=== PATIENT | female | born 1935 | race Caucasian/White ===

== ENCOUNTER 2016-05-13 08:42 | Inpatient (IN) | payer MEDICARE, MEDICAID ==
[~2016-05-13] VITALS: Ht 175.3 cm; Wt 78.9 kg
[2016-05-13] VITALS (8 sets, daily range): BP systolic 40–100; BP diastolic 29–44; PULSE 62–91; RESP 22–30; O2SAT 90–98
--- NOTE | 2016-05-13 08:37 | ED.REPORT ---
HPI-Cardiac Arrest Date of Service May 13, 2016 ED Provider: The patient is an 80 year old female with an unknown medical history who was brought to the emergency department by EMS after she was found down by family. The patient was found in bed, unresponsive and apneic. She was still warm with good skin color. Family started CPR and medics were called. Medics arrived about 10-15 minutes after CPR was started. When they arrived the patient was in asystole. They shocked her twice and administered 2 rounds of epinephrine and she went into a PEA rhythm. Another round was completed and she regained pulses with a pressure in the 80s systolic. They moved her into the rig and within about 1 minute she lost pulses again. CPR was started again, 1 round of epinephrine was administered, and she regained circulation. 2-3 minutes prior to arrival the patient lost pulses again, CPR was started, and she was given an additional dose of epinephrine (2.5 minutes prior to arrival). BSG taken by medics was 220. CPR was in progress for at least 55 minutes prior to arrival. The initial downtime is unknown. Nursing Notes Stated Complaint: CPR IN PROGRESS Nursing Notes Reviewed: Yes General Time Seen by Provider: 08:43 Chief Complaint Other (found down) Down Time Prior to EMS: Unknown (at least 15 minutes) Total Time Arrest to Arrival: Unknown (at least 55 minutes) Context: Resuscitation: Initial rhythm asystole, Defibrillation X 2, Epinephrine IV X 2 Hx Obtained From: EMS Unable to Obtain Hx: Patient condition Arrived By: Ambulance Onset Occurred: Onset unknown (at least 55 minutes) Symptom Duration: Since onset Past Medical History Unable to Obtain History Past medical history, Past surgical history, Family history, Smoking history, Social history, Occupation, Ambulatory status Review of Systems Unable to Obtain ROS Patient condition, Intubated Physical Exam Initial Vital Signs Vital Signs (First) Date Time Temp Pulse Resp B/P Pulse Ox O2 Delivery O2 Flow Rate FiO2 05/13/16 09:50 95 05/13/16 10:42 32.4 74 22 100/44 Mechanical Ventilator SEE PAPER CHART Initial VS: Reviewed Neck: Supple, Full range of motion Extremities: No swelling Skin: Warm Alertness: Positive: Unresponsive CPR in progress, intubated with shankar airway Respiratory / Chest: Breath sounds = bilat Good bilateral breath sounds CARDIAC: CPR in progress, well perfused Abdomen: Soft, No distention large intraabdominal mass palpated in the RUQ Head / Eyes: Normocephalic Pupils are 4 mm and minimally reactive Lower Extremity / Pelvis / MS: No deformity No calf swelling NEURO: After return of spontaneous circulation the patient is not breathing spontaneously. She is not responding to painful stimuli. No facial droop or lateralizing neurologic findings. Interpretation & Diagnostics Lab Results Interpretation Result Diagram: 05/13/16 0859 05/13/16 0859 Test 05/13/16 08:59 05/13/16 09:00 05/13/16 09:26 05/13/16 09:27 White Blood Count 11.6th/mm3 (3.8-10.1) Red Blood Count 3.98mil/mm3 (3.90-5.20) Hemoglobin 12.5g/dL (12.0-15.6) Hematocrit 41.7% (35.0-46.0) Mean Corpuscular Volume 104.8fL (81-100) Mean Corpuscular Hemoglobin 31.4pg (27.0-35.0) Mean Corpuscular Hemoglobin Concent 30.0% (32.0-37.0) Red Cell Distribution Width 12.6% (12.3-15.4) Platelet Count 123bil/L (150-400) Neutrophils (%) (Auto) 42.6% (40-74) Lymphocytes (%) (Auto) 44.6% (14-46) Monocytes (%) (Auto) 4.3% (4-12) Eosinophils (%) (Auto) 2.0% (0-5) Basophils (%) (Auto) 0.3% (0-3) Sodium Level 140mEq/L (134-144) Potassium Level 4.3mEq/L (3.5-5.2) Chloride Level 99mEq/L (97-108) Carbon Dioxide Level 7mmol/L (18-29) Blood Urea Nitrogen 25mg/dL (8-27) Creatinine 1.21mg/dL (0.57-1.00) Estimat Glomerular Filtration Rate 61mL/min (>59) Glucose Level 338mg/dL (60-99) Calcium Level 8.6mg/dL (8.5-10.1) Magnesium Level 3.1mg/dL (1.6-2.6) Total Bilirubin 0.3mg/dL (0.0-1.2) Aspartate Amino Transf (AST/SGOT) 156U/L (0-50) Alanine Aminotransferase (ALT/SGPT) 159U/L (0-32) Alkaline Phosphatase 77U/L (25-165) Total Protein 5.6g/dL (6.4-8.4) Albumin 3.2g/dL (3.4-5.0) Hold Ortiz Top Tube Received (Received) Prothrombin Time 13.0sec (8.1-12.5) Prothromb Time International Ratio 1.21ratio Total Creatine Kinase 350U/L (21-215) Creatine Kinase MB 6.0ng/mL (0.0-5.3) Creatine Kinase MB % % (0.0-5.0) Activated Partial Thromboplast Time 90.2sec (22.8-33.0) D-Dimer 136.2mg/L (<0.50) Test 05/13/16 10:35 Lactic Acid Level 20.8mmol/L (0.4-2.0) ECG Interpretation ECG Interpretation: Sinus rhythm Significant ST depression in leads V3-V6 of 2-[address] segment elevation No prior available for comparison Time: 08:59 Interpreted by: ED physician ECG Interpretation: Shows significant resolution of lateral ST depressions Time: 11:34 Interpreted by: ED physician ABG Interpretation ABG Interpretation: 6.777/83/67.1/11.6/-24.5 Exam Performed by: Allied health pract Indication: Cardiac arrest X-Ray Chest Interpretation Chest Xray Interpretation: IMPRESSION: Left upper and lingular as well as right basilar opacities as above. These could represent areas of focal edema versus developing airspace disease such as pneumonia. Dictated by: Giulia Rodriguez M.D. on 05/13/2016 at 9:18 View: Portable, 1 view Interpretation / Wet Read by: Interpret - Radiologist Chest Xray Interpretation: IMPRESSION: 1. Interval placement of right-sided catheter as above. It is noted the distal tip is projecting to the right of midline. On the basis of this examination, venous placement cannot be confirmed. Recommend repeat image with the patient in better positioning or CT chest for further evaluation of placement. 2. Unchanged appearance of bilateral opacities, left greater than right. It can be suggestive of pneumonia and/or underlying areas of edema. Above findings were discussed with Dr. Dante Santos on 05/13/16 at 10:[address] Santos felt the line is venous secondary to clinical parameters as well as ultrasound placement. However, he will reassess and order additional imaging as indicated. Dictated by: Giulia Rodriguez M.D. on 05/13/2016 at 10:27 View: Portable, 1 view Interpretation / Wet Read by: Interpret - Radiologist, Discussed w radiologist CT Head Interpretation IMPRESSION: 1. No acute intracranial process. 2. Moderate atrophy and chronic microvascular ischemic changes. Dictated by: Guilia Rodriguez M.D. on 05/13/2016 at 10:40 Study: Head CT no contrast Interpretation / Wet Read by: Interpret - Radiologist Procedures Central Line Placement Time: 09:36 Procedure Performed by: ED physician Consent / Setup / Site Prep: No consent - emergent, Time-out performed, Oxygen administered, Pulse oximeter applied, property supervisor applied, Hand hygiene observed, Standard surgical scrub, Max barrier precaution, Sterile drapes applied, Position Trendelenburg Skin Preparation Agent: Hibiclens - Chlorhexidine Local Anesthesia: Lidocaine 1% Side / Location / Ultrasound: Internal jugular right, Ultrasound assisted Catheter / Lumen / Technique: Catheter size, Triple lumen, Seldinger technique, Good blood return, Secured with tape Post-Procedure / Complications: Antibiotic oint applied, Dressing placed, CXR neg for pneumothorax, Condition improved, Tolerated procedure well, Patient stable, Not stable post-procedure Intubation Intubation Procedure: ET tube placed by medics was removed and replaced. Time: 09:00 Procedure Performed by: ED physician Consent / Setup / Site Prep: No consent - emergent, Time-out performed, Oxygen administered, Pulse oximeter applied, property supervisor applied, Hand hygiene observed, Stand sterile technique Patient Position: Sniff position, Head extended Blade / ET Tube / Route: [place] scope, ET tube cuffed, Route: oral ET Confirmation: Direct visualization, BS equal, End tidal CO2 device, CXR, Rising O2 sat Secured / Marked: ET tube device, Tube marked at ___ cm (22), Tube marked at teeth Complications: None Post-Procedure: Condition improved, Tolerated procedure well, Patient stable Re-Eval/Medical Decision Med Decision/Clinical Course In summary, the patient is an 80-year-old female with unknown past medical history brought into the emergency Department by paramedics with CPR in process. Per report from paramedics the patient was found unresponsive in bed this morning by and was noted to be apneic and pulseless. CPR was initiated by and was in process for approximately 5 minutes before EMS arrived. Upon arrival of EMS CPR was continued and several rounds of epinephrine were administered. The patient was noted to be in PEA and ROSC was achieved x2 but pulses were lost both times. Upon arrival patient is receiving good CPR with skin that appears perfused. A Shankar airway is in place and she has good bilateral breath sounds. Her CODE STATUS and past medical history is unknown. CPR was continued for 3 rounds of epinephrine was administered. ROSC was achieved and she had good femoral pulses. We administered 3 L of IV fluids. She was noted to be hypotensive with systolic blood pressure in the 70s. Norepinephrine infusion was initiated and a map of >65 was achieved. Patient did not respond to painful stimuli and had fixed 4-5 mL pupils. She had received no sedatives or paralytic drugs. Cooling protocol was initiated. The Shankar airway was removed and a 7.5 endotracheal tube was placed with ease. Patient did not have any oxygen desaturation. A right internal jugular CVC was placed under ultrasound guidance. Chest x-ray to verify placement was equivocal as to whether or not the catheter was intravenous however when placing the catheter was able to visualize the guidewire in venous lumen. Laboratory studies an ABG was obtained as below: leukocytosis 11.6, hct 41.7 lactic acid 20.8 creatinine 1.21, bun 25, no sig electrolyte abnormalities, neg troponin x2, CKMB of 6.0 d-dimer 136.2, AB.777/83/67.1/11.6, repeat AB.071/36/254.0/10.[address] negative for acute intracranial hemorrhage. An initial EKG was obtained as above and demonstrated significant lateral ST depression concerning for acute ischemic event. This was discussed with cardiology Dr. Mars who evaluated the patient at the bedside and reviewed the EKG findings as above. Repeat EKG demonstrated significant resolution of lateral ischemic changes. It was not felt that the patient should be taken immediately for cardiac catheterization. Therefore bedside echo was obtained that demonstrated no focal wall motion abnormalities and hyperdynamic myocardium. Patient had initially been started on heparin bolus and infusion however we opted to discontinue this after discussing with cardiology. The cause of the patient's cardiac arrest remains unclear. I strongly considered pulmonary embolism however bedside echo demonstrates no right ventricular dilation or septal bowing per my discussion with cardiology. The patient's d-dimer is markedly elevated we do not feel that she is stable at this moment for CT angiography of the chest. Patient does have palpable abdominal mass and on review of recent CT scan from [facility] this does appear to reflect likely malignancy. We considered TPA however given patient's known significant malignancy and unclear etiology with this time opted to withhold TPA. There is no evidence at this time of acute infectious etiology. Patient is no longer felt to be a candidate for the laboratory director. We had a long discussion with the patient's family and they would like to proceed with aggressive management at this time though they will consider further as the clinical picture of. I am very concerned the patient may have sustained significant anoxic brain injury in the course of her prolonged CPR and unknown down time prior to initiating CPR. My concerns are further supported by the fact the patient remains with GCS 3T despite having received no sedation. The patient remained critically ill, family was updated as to the situation and the patient was admitted to the ICU for further management. Source of Hx: Old records, EMS Re-Evaluation/Progress #1: Time of Eval: 08:46 Re-Evaluation/Progress Note: No pulse, CPR continued. Re-Evaluation/Progress #2: Time of Eval: 08:49 Re-Evaluation/Progress Note: The patient has a pulse. Vitals are stable at this point. Re-Evaluation/Progress #3: Time of Eval: 08:55 Re-Evaluation/Progress Note: Will switch out ET tube. Re-Evaluation/Progress #4: Time of Eval: 09:01 Re-Evaluation/Progress Note: Rechecked the patient. Re-Evaluation/Progress #5: Time of Eval: 09:08 Re-Evaluation/Progress Note: The patient will be rolled off the backboard. Re-Evaluation/Progress #6: Time of Eval: 09:18 Re-Evaluation/Progress Note: BP: 54/24. Re-Evaluation/Progress #7: Time of Eval: 09:36 Re-Evaluation/Progress Note: Completed central line Re-Evaluation/Progress #8: Time of Eval: 10:10 Re-Evaluation/Progress Note: The patient was transferred to CT. Re-Evaluation/Progress #9: Time of Eval: 10:12 Re-Evaluation/Progress Note: Discussed the patient's case with her family members. Consultation #1: Referral / Consult Name: Vish Mars MD Consulted With: Cardiology Call Returned at: 09:03 County Demonstrator: Will see patient, Agrees with eval, Agrees with plan Note: He would like to have the EKG sent to him. Consultation #2: Referral / Consult Name: Vish Mars MD Consulted With: Cardiology Call Returned at: 09:15 Note: He is unable to see the EKG. Will resend. Consultation #3: Referral / Consult Name: Vish Mars MD Consulted With: Cardiology Call Returned at: 09:20 Note: Discussed EKG results. He would like a stat echo then will take her to the laboratory director. Consultation #4: Referral / Consult Name: Primo Mckinney MD Consulted With: Hospitalist Call Returned at: 09:31 County Demonstrator: Will see patient, Agrees with eval, Agrees with plan, Accepts admit Consultation #5: Referral / Consult Name: Vish Mars MD Consulted With: Cardiology Call Returned at: 11:29 Note: At this time with the current results he would not like to take her to the laboratory director. Counseled Regarding: Diagnosis, Lab results, Need for admission Discharge & Departure Impression: Primary Impression: Cardiac arrest Additional Impressions: Comatose Coma depth: [place] coma 3-8 Qualified Code: R40.243 - [place] coma scale score 3-8 Elevated d-dimer Elevated lactic acid level Pulseless electrical activity Shock circulatory Leukocytosis Leukocytosis type: unspecified Qualified Code: D72.829 - Elevated white blood cell count, unspecified Malignancy Metabolic acidosis Respiratory acidosis Disposition: ADMITTED TO HOSPITAL All VS Reviewed: Yes Condition: Critical Crit Care Except Billable Proc Time Spent: 135-164 minutes Services Performed: Patient management by me, Time spent at bedside, Reviewing test results, Reviewing imaging, Discussing patient care, Documentation in record, Time with fam/surrogate Critical Care Notes: Discussions with consultants, discussions with family, reviewing serial ABG, troponin, EKGs. All exclusive of separately billable procedures. Scribe Attestation Portions of this note were transcribed by Pao Browning. I, Dr. Santos personally performed the history, physical exam and medical decision-making; I reviewed and confirmed the accuracy of the information in the transcribed note. Signed by: Liseth Figueroa, 05/13/2016 at 1300. Dante Santos MD May 13, 2016 08:37 Pao Browning May 13, 2016 08:52
[2016-05-13 09:04] LABS: BASOPHILS % (AUTO) 0.3 % (0-3); MONOCYTES % (AUTO) 4.3 % (4-12); Mean Corpuscular Hemoglobin 31.4 pg (27.0-35.0); Mean Corpuscular Volume 104.8 fL (81-100); NEUTROPHILS % (AUTO) 42.6 % (40-74); Platelet Count 123 bil/L (150-400)
--- NOTE | 2016-05-13 09:21 | DRSVH ---
PROCEDURE: X-RAY CHEST ONE VIEW, PORTABLE ([id number]) INDICATIONS: chest pain TECHNIQUE: One view of the chest was acquired. COMPARISON: None. FINDINGS: Surgical changes and devices: Endotracheal tube is present approximately 2.5 cm superior to the herminia a. Lungs and pleura: There is appearance of increased opacity within the left upper and lingular regions as well streaky opacity within the right base. Mediastinum: Mediastinal contours appear normal. Heart size is normal. Bones and chest wall: No suspicious bony lesions. Overlying soft tissues appear unremarkable. IMPRESSION: Left upper and lingular as well as right basilar opacities as above. These could represen t areas of focal edema versus developing airspace disease such as pneumonia. Dictated by: Giulia Rodriguez M.D. on 05/13/2016 at 9:18 Approved by: Giulia Rodriguez M.D. on 05/13/2016 at 9:19
[2016-05-13] MEDS ORDERED: Heparin 5,000 Unit/mL Inj IVPUSH ONE (09:25)
[2016-05-13] MEDS ORDERED: Heparin 25K Unit/500mL 0.45 NS 25,000 UNIT in IV Premix 1 EACH IV ONE (09:25)
--- NOTE | 2016-05-13 09:36 | ABG ---
DateTimeAnalyzed 09:30:00 -_ pH ____6.777 - 7.350 7.450 pCO2 ___83.4__ -mmHg 35.0 45.0 pO2 ___67.1__ -mmHg 69.0 116 HCO3- ___11.6__ -mmol/L 22.0 26.0 ABE __-24.5__ -mmol/L -2.0 2.0 tHb ___11.3__ -g/dL O2Hb ___70.9__ -% COHb ___-0.3__ -% MetHb ____1.1__ -% sO2 ___71.5__ -% FIO2 __100.0__ -% PEEP ____5.0__ -cmH2O Set_RR ___24.0__ -b/min Vt __440.0__ -L Drawn By jmw - Date/Time Notified____ 09:35:00 -_ A/C __440.0__ - Oxygen Device 1 VENTILATOR - Notified By jmw - Notified Whom DR LONG[address] - B 743 -mmHg tO2 ___11.4__ -Vol% Primo test _Positive -
[2016-05-13 09:40] LABS: TROPONIN T 0.01 ug/L (0.0-0.011)
[2016-05-13 09:51] LABS: Magnesium 3.1 mg/dL (1.6-2.6)
--- NOTE | 2016-05-13 10:37 | DRSVH ---
PROCEDURE: X-RAY CHEST ONE VIEW, PORTABLE ([id number]) INDICATIONS: central line placement TECHNIQUE: One view of the chest was acquired. COMPARISON: None. FINDINGS: Surgical changes and devices: Endotracheal tube is unchanged. There has been interval placement of a right-sided catheter with distal tip projecting to the left of midline. Lungs and pleura: There is a persistent air opacities within the lungs bilaterally without interval c hange. Mediastinum: Mediastinal contours appear normal. Heart size is normal. Bones and chest wall: No suspicious bony lesions. Overlying soft tissues appear unremarkable. IMPRESSION: 1. Interval placement of right-sided catheter as above. It is noted the distal tip is projecting to t he right of midline. On the basis of this examination, venous placement cannot be confirmed. Recommen d repeat image with the patient in better positioning or CT chest for further evaluation of placement . 2. Unchanged appearance of bilateral opacities, left greater than right. It can be suggestive of pneu monia and/or underlying areas of edema. Above findings were discussed with Dr. Dante Santos on 05/13/16 at 10:[address] Santos felt the line is venous secondary to clinical parameters as well as ultrasound placeme nt. However, he will reassess and order additional imaging as indicated. Dictated by: Giulia Rodriguez M.D. on 05/13/2016 at 10:27 Approved by: Giulia Rodriguez M.D. on 05/13/2016 at 10:34
--- NOTE | 2016-05-13 10:43 | DRSVH ---
PROCEDURE: CT BRAIN WITHOUT CONTRAST ([id number]) INDICATIONS: r/o bleed b/f heparin TECHNIQUE: Noncontrast 4.5 mm thick angled axial sections acquired from the foramen magnum to the vertex, with c oronal reformats. COMPARISON: [facility], CT, HEAD WITHOUT CONTRAST, 11/10/2015, 7:30. FINDINGS: Image quality: Excellent. CSF spaces: Basal cisterns are patent. No extra-axial fluid collections. The ventricles are symmet juan f in size and shape. Brain: No intracranial bleeds or masses. There is cerebral volume loss for age, with resultant vent ricular and sulcal prominence. There are periventricular and deep white matter chronic small vessel ischemic changes. There is intracranial internal carotid artery atherosclerosis. Skull and face: Calvarium and visualized facial bones appear intact, without suspicious lesions. Sinuses: Visualized sinuses demonstrate mucosal thickening and fluid scattered within the visualized nasopharynx and ethmoid sinuses. IMPRESSION: 1. No acute intracranial process. 2. Moderate atrophy and chronic microvascular ischemic changes. Dictated by: Giulia Rodriguez M.D. on 05/13/2016 at 10:40 Approved by: Giulia Rodriguez M.D. on 05/13/2016 at 10:42
[2016-05-13] MEDS: Norepineph 8,000 mCg/250 mL NS 8,000 MCG in IV Premix 1 EACH IV SCH ×4 (10:54→21:02)
--- NOTE | 2016-05-13 11:13 | ABG ---
DateTimeAnalyzed 11:07:00 -_ pH ____7.071 - 7.350 7.450 pCO2 ___36.0__ -mmHg 35.0 45.0 pO2 254 -mmHg 69.0 116 HCO3- ___10.0__ -mmol/L 22.0 26.0 ABE __-19.7__ -mmol/L -2.0 2.0 tHb ___13.4__ -g/dL O2Hb ___97.5__ -% COHb ___-0.1__ -% MetHb ____1.1__ -% sO2 ___98.5__ -% FIO2 __100.0__ -% PEEP ____5.0__ -cmH2O Set_RR ___24.0__ -b/min Vt __440.0__ -L Drawn By jmw - Date/Time Notified____ 11:12:00 -_ A/C __440.0__ - Oxygen Device 1 VENTILATOR - Notified By jmw - Notified Whom DR [address] - B 743 -mmHg tO2 ___18.9__ -Vol% Primo test _Positive -
[2016-05-13 11:37] LABS: INR 1.21 ratio
[2016-05-13] MEDS ORDERED: Alum-Mag Hydrox-Simeth 30 mL Suspension PO PRN (12:00)
[2016-05-13] MEDS ORDERED: Senna-Docusate 8.6-50 mg Tablet PO PRN (12:00)
[2016-05-13] MEDS ORDERED: Ondansetron 2 mg/mL 2 mL Inj IVPUSH PRN (12:00)
[2016-05-13] MEDS ORDERED: Polyethylene Glycol (PEG) 17 Gm Powder PO PRN (12:00)
[2016-05-13] MEDS ORDERED: Insulin Human REGular Inj 100 UNIT in 0.9% Sodium Chloride-Pha MIX 100 ML IV SCH (12:11)
[2016-05-13 12:18] LABS: Creatine Kinase 350 U/L (21-215)
[2016-05-13] MEDS: Vasopressin Inj 20 UNIT in 0.9% Sodium Chloride 100 ML IV SCH ×2 (12:31→21:03)
[2016-05-13] MEDS ORDERED: 0.9% Sodium Chloride 500 ML ONE (12:51)
--- NOTE | 2016-05-13 12:53 | ABG ---
DateTimeAnalyzed 12:48:00 -_ pH ____7.208 - 7.350 7.450 pCO2 ___26.8__ -mmHg 35.0 45.0 pO2 ___47.4__ -mmHg 69.0 116 HCO3- ___10.3__ -mmol/L 22.0 26.0 ABE __-16.3__ -mmol/L -2.0 2.0 tHb ___12.6__ -g/dL O2Hb ___76.0__ -% COHb ____0.4__ -% MetHb ____1.0__ -% sO2 ___77.1__ -% FIO2 ___50.0__ -% PEEP ____5.0__ -cmH2O Set_RR ___30.0__ -b/min Vt __470.0__ -L Drawn By as - Date/Time Notified____ 12:53:00 -_ Spontaneous_RR ___30.0__ -b/min Oxygen Device 1 VENTILATOR - Notified By ams - Notified Whom ___Dr. Kendregan - B 742 -mmHg tO2 ___13.5__ -Vol% Primo test N/A -
[2016-05-13] MEDS ORDERED: Lactated Ringer's 1,000 ML IV ONE ×3 (13:01→15:46)
[2016-05-13] MEDS ORDERED: Levothyroxine 100 mCg/5 mL Inj IV SCH (14:40)
[2016-05-13] MEDS: Chlorhexidine 0.12% 15 mL Oral Solution MT SCH ×3 (14:40→21:01)
--- NOTE | 2016-05-13 14:41 | DRSVH ---
[facility] [address] [place] [address] Echocardiogram Report Name: JULIA MARIE JStudy Date : 05/13/2016 [facility] Exam Location: [facility] Gender: Female : 1935 Age: 80 yrs BP: 86/ m mHg Reason For Study: Respiratory Arrest Performed By: Shonna Trevizo Referring Physician: AURELIA FORBES Interpretation Summary The left ventricle is normal in size, wall thickness, and systolic function without any focal wall motion abnormalities. The ejection fraction is estimated to be 65-70%. The E/A ratio is reversed with an elevated E/E', suggesting impaired early relaxation of the left ventricle with possible increased filling pressures. The right ventricle is normal in size and function. The right ventricular systolic pressure is estimated at 29 mmHg assuming a right atrial pressure of 3 mm Hg. The left atrium is moderately dilated. The right atrium is moderately dilated. There is mild to moderate tricuspid regurgitation. The ascending aorta is mild-moderately enlarged. Procedure: A two-dimensional transthoracic echocardiogram with color flow and Doppler was performed. The study quality was technically adequate. There is no prior echocardiogram noted for this patient. Incidental finding of a large solid mass in the right lowere quadrent measuring 9.5 x 6.5 cm. The patient was in normal sinus rhythm during the exam. Left Ventricle: The left ventricle is normal in size, wall thickness, and systolic function without any focal wall motion abnormalities. The ejection fraction is estimated to be 65-70%. The E/A ratio is reversed with an elevated E/E', suggesting impaired early relaxation of the left ventricle with possible increased filling pressures. Right Ventricle: The right ventricle is normal in size and function. Atria: The left atrium is moderately dilated. The right atrium is moderately dilated. The interatrial septum is intact with no evidence for an atrial septal defect. Mitral Valve: The mitral valve leaflets appear mildly thickened, but open well. There is moderate mitral annular calcification. There is no mitral regurgitation. Aortic Valve: The aortic valve is trileaflet. There is mild aortic valve sclerosis. No aortic regurgitation is present. Tricuspid Valve: The tricuspid valve is normal in structure and function. The right ventricular systolic pressure is estimated at 29 mmHg assuming a right atrial pressure of 3 mm Hg. There is mild to moderate tricuspid regurgitation. Pulmonic Valve: The pulmonic valve is not well seen, but is grossly normal. There is no pulmonic valvular regurgitation. Great Vessels: The aortic root is normal size. The ascending aorta is mild- moderately enlarged. The IVC is of normal diameter and collapses greater than 50% with a sniff. This suggests a low right atrial pressure of 3 mm Hg. Pericardium/ Pleura There is no pericardial effusion. There is no pleural effusion. MMode/2D Measurements & Calculations LVIDd: 3.7 cm LA dimension RA long axis Ao root diam: 3.2 cm LVIDs: 1.9 cm Aortic Jxn: 2.6 cm FS: 50.4 % LA A2 area RA area asc Aorta Diam: 4.2 cm IVSd: 1.0 cm : 15.5 cm Ao Arch Diam (Prox LVPWd: 1.1 cm LA A4 area RA vol: 45.8 ml Trans): 2.9 cm RVDd major : 5.4 cm LA length (vol) LA vol: 47.4 ml IVC diam: 1.2 cm RVD1 (basal) RVD2 (mid): 2.8 cm Doppler Measurements & Calculations Ao V2 max MV E max mikhail MV E/A: 0.79 TR max mikhail : 123.4 cm/sec : 86.4 cm/sec Med Peak E' Mikhail : 256.4 cm/sec Ao max PG MV A max mikhail TR max PG : 6.1 mmHg : 109.1 cm/sec E/E' med: 20.0 : 26.3 mmHg Ao mean PG MV P1/2t: 91.3 msec Lat Peak E' Mikhail PA V2 max : 3.0 mmHg : 65.3 cm/sec E/E' lat: 13.7 PA mean PG E/e' average: 16.9 : 0.88 mmHg MV A dur: 0.25 sec PA Accel Time : 0.10 sec MV dec time MV P1/2t max mikhail Ao V2 mean PA V2 mean : 0.30 sec : 77.6 cm/sec : 42.5 cm/sec MVA(P1/2t): 2.4 cm2 Ao V2 VTI: 25.3 cm Reading Physician:LENORE
[2016-05-13] MEDS ORDERED: QUET50TA55 PO (14:42)
[2016-05-13] MEDS ORDERED: LEVO100T6 PO (14:42)
[2016-05-13] MEDS ORDERED: SIMV20TA4 PO (14:42)
--- NOTE | 2016-05-13 14:43 | NUR ---
Admit: Pt found down at home, down for unspecified length of time, CPR in field for approx 60 minutes. Hypothermia protocol started, pt at goal temp of 32.5 at 1035, on [employer] machine. Unresponsive to stimuli, no movement noted. Vent settings 50/5/30/470, O2 sats 94%. Bhardwaj in place, scant urine output noted. Hypotensive, Levophed and Vasopressin gtts in place, see flowsheet for details. Q2h turn, care ongoing.
--- NOTE | 2016-05-13 15:04 | CONS ---
[address] [address] CONSULTATION REPORT PATIENT: JULIA MARIE : 1935 MR#: [id number] ADMIT: 05/13/2016 JOB ID: [id number] CARDIOLOGY CONSULTATION NOTE--INITIAL CRITICAL CARE EVALUATION (EMERGENCY DEPARTMENT): DATE OF EVALUATION: Friday, May 13, 2016 CONSULTING PHYSICIAN: Cardiology-Vish Mars MD PROBLEMS: 1. Cardiac Arrest: a. Cardiac arrest with Asystole; and PEA(no VF observed); then recurrent cardiac arrest; and ROSC after prolonged resuscitation of 45 minutes. b. Question of ACS (Acute Coronary Syndrome)--ST depression on lateral ECG leads. c. Unresponsive; and on Hypothermia protocol with dilated pupils. 2. Shock: a. Unclear cause of shock; but doubt cardiogenic shock. b. Hemodynamic Collapse--Refractory Hypotension requiring high dose pressor support. CAD RISK FACTORS: 1. No history of diabetes. 2. No history of treated hypertension. 3. No history of treated hyperlipidemia. 4. Lifetime nonsmoker. 5. Family history of premature coronary disease not defined. OTHER PROBLEMS: 1. Mass--Right lower quadrant: a. A 10 cm mass is palpable. b. Report of recent CT in March,, at [facility] confirms solid right adnexal mass, suggestive of malignancy; and note poorly defined liver lesions. 2. Alzheimer Disease--Moderately severe. CHIEF COMPLAINT: 1. Lehr Cutter called to consider cardiac catheterization because of ST depression on ECG. 2. Cardiac arrest with hypotension requiring high dose pressor. HISTORY OF PRESENT ILLNESS: PRE-HOSPITAL: I came emergently to see this 80-year-old woman who was in her [facility] state of health until she was found unresponsive in bed by her this morning. She had been alone in the bedroom; and it is not known how long she was unresponsive. He could not find a pulse, and did CPR. When EMS arrived, they reported to have found asystole, then PEA. Apparently after ROSC, she "lost pulses" several times, suggestive of hemodynamic collapse. EMERGENCY DEPARTMENT COURSE: She arrived in the Emergency Department with ongoing CPR. There was apparently at least 45 minutes resuscitation until she had sustained ROSC. On arrival in the Emergency Department, systolic blood pressure was 150, but this apparently was due to repeated epinephrine boluses; and she quickly required high dose intravenous norepinephrine at 35 mcg/minute to maintain a systolic blood pressure of 100. Hypothermia protocol was initiated. She remained unresponsive, including apparently not breathing on her own. CARDIAC HISTORY: She has apparently been well until the current episode. She is not vigorously active but went on regular walks with her in the past. They now go driving daily. She gets around in the house and has no overt cardiac symptoms, effort limitation or effort-related symptoms. Specifically the and Family report no chest pain, no dyspnea. She apparently does not have symptoms suggestive of heart failure such as nocturnal dyspnea or edema. There is no history of arrhythmia, or symptoms of arrhythmia such as presyncope, syncope or tachy palpitations. Regarding prior cardiac history, she apparently had a bad "asthma" episode three years ago evaluated at [facility]; then transferred to [facility] in [place] where the Family says a cardiac work-up was done. The family reports she had a cardiac workup at that time but apparently not catheterization or intervention; and they understand there was no other cardiac problem found. She had one prior episode of orthostatic syncope in her kitchen that was attributed to "dehydration." Regarding other possible underlying vascular disease, there is no history of CVA or current symptoms of TIA. No claudication. Regarding possible dual antiplatelet anticoagulation, she has no apparent known bleeding symptoms. There is no anticipated upcoming surgery. ALLERGIES: No known drug allergies. Initially there was said to be an unclear question of aspirin allergy; but the tells me there is no aspirin allergy; and she takes aspirin daily without trouble. I elicit no allergy to medical contrast; or to fish, seafood, or iodine. MEDICATIONS: The family does not know except. ASA WD. Probably Thyroid supplement. PAST MEDICAL HISTORY: 1. Abdominal Mass: After finding abdominal mass on physical examination, I questioned the Family. They are aware of the mass and that she has had CT scans; but no other apparent intervention. She may have seen a sock lining examiner. 2. Alzheimer Disease--Initially the Family tells me "on a good day she can barely communicate." She apparently has good days; and bad days. However, on questioning, it seems that, overall, she has a reasonable quality of life, living independently with her . They have a routine where they sit for coffee every morning; and until recently they walked. The feels her quality of life would be satisfactory to her if she returned to her premorbid status. REVIEW OF SYSTEMS: I questioned the Family in the emergent setting about a 13 point review of systems which is unremarkable, noncontributory, or negative except as noted includin. They report a history of thyroid disorder probably on thyroid replacement. 2. No known lung disorder except said to have "asthma" in childhood with no further problem until the single recurrent episode of severe asthma reported three years ago. 3. No abdominal pathology noted otherwise. PERSONAL SOCIAL HISTORY: 1. Cigarettes--Lifetime nonsmoker. 2. Alcohol--she does not drink much alcohol. She might drink half of a beer shared with her . 3. Family: She lives with her . They have three children and grandchildren; and multiple family members are present. 4. 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 FAMILY HISTORY: Noncontributory. PHYSICAL EXAMINATION: GENERAL APPEARANCE: Well-developed, elderly woman who is unresponsive, intubated, on ventilator, with fixed, dilated pupils on no sedation currently. Cooling protocol is present. VITAL SIGNS: Systolic blood pressure 100 on norepinephrine 35 mcg/minute. Heart rate 90 BPM, regular in sinus rhythm without arrhythmia on telemetry. Respiratory rate 14, controlled on ventilator; and O2 saturation 96% on 100% FiO2. Admitting temperature said to be very low at 31 degrees. NEUROLOGIC: Mental status: Unresponsive and no overt apparent focal neurologic defect. HEENT: PERRL. Conjunctivae pink. Sclerae not icteric. Mouth and mucous membranes intact; and intubated. NECK: Carotid upstroke brisk bilaterally without bruit. Jugular venous pressure uninterpretable examined supine. No palpable thyromegaly. No palpable cervical lymphadenopathy. LUNGS: Clear to auscultation bilaterally. CARDIAC: Overall unremarkable cardiac examination with regular rhythm, S4 gallop. No loud murmur. ABDOMEN: Somewhat obese; and the abdominal examination is impressive for a visible, and palpable palm sized firm right lower quadrant mass which is not pulsatile. EXTREMITIES: No edema. Pedal pulses difficult to feel bilaterally. DIAGNOSTIC STUDIES: ELECTROCARDIOGRAM: The admitting electrocardiogram shows sinus rhythm at 90 BPM with narrow QRS. There is ischemic appearing horizontal ST depression in the lateral precordial leads. There is a subtle hint of ST coving or elevation only in lead aVL. The ECG is not consistent with guideline defined ST-Elevation. QTc is prolonged. Follow up ECG: A follow up ECG is similar; but the initial ST depression is partly resolved; and there is more widespread diffuse ST depression overall. The impression is that the ECG is nonspecific, especially in the context of the overall evaluation, and subsequent Echo findings. CHEST X-RAY: The chest x-ray shows cardiomegaly. Mediastinum is not notable. Pulmonary vasculature appears suggestive of pulmonary edema; but is at the same time atypical because it appears somewhat focal with pulmonary vascular prominence mostly in the left upper lobe, and also infiltrate in the right lower lobe. Therefore, pulmonary contusion and pneumonia is considered in addition to pulmonary edema. Note she received 3 L of crystalloid on arrival in the Emergency Department. LABORATORY: Initial laboratory includes: CBC includes WBC 11,600 with hemoglobin 12.5, hematocrit 41.7 and abnormal RBC indices with MCV elevated at 104.8, with a MCHC low 30.0 and low platelet count at 123,000. INR 1.2. D-dimer markedly elevated at 136.2. Chemistries include potassium 4.3, carbon dioxide 7, BUN 25, creatinine 1.1. Glucose 338. Note very elevated magnesium 3.1. Liver function tests somewhat abnormal with AST 156, ALT 159. Initial cardiac markers include CK total 350, CK-MB 6; but troponin not elevated 0.010. Albumin 3.2. Note lactic acid extremely high 20.8. Arterial blood gases include initial ABG with pH extraordinarily low at 6.7. Subsequent blood gases show pH improved to 7.0. Oxygenation is intact but there is AA gradient. ECHOCARDIOGRAM: I briefly reviewed selected images of the Echocardiogram as it was being done at the bedside. The Echocardiogram shows normal LV size, and wall thickness, with vigorous LV systolic function with estimated ejection fraction over 65%. There are clear images that show no wall motion defect. The left ventricle appears small and under filled suggestive of hypovolemia. Regarding valvular disease, aortic valve is somewhat thickened with three cusps and opens fully without aortic stenosis or regurgitation. There is mild-to- moderate tricuspid regurgitation without pulmonary hypertension. The aortic root is mild to moderately dilated at 4.2. The abdominal aorta appears somewhat enlarged, but the thoracic aorta is probably not enlarged at the arch. CT HEAD: Reported to be no pathology. ASSESSMENT: I discussed the findings, impressions and management considerations with the and multiple Family members; as well as with the Emergency Department staff; and with the ICU team; with Cardiology including: * Cardiac Arrest with prolonged resuscitation, then ROSC; and shock requiring high-dose pressors: The initial question for Cardiology regarded ST depression and question of early catheterization. because we initially considered a cardiac source of her arrest likely, and the possibility of an ischemic coronary problem possible given her ST depression, there was strong consideration of early catheterization if it would help define or treat a coronary problem responsible for her ongoing hypotension. After echocardiogram, however, it became clear this is not likely cardiogenic shock and decision was made to defer catheterization, including because of the high risks of catheterization, and contrast media. The primary focus thereafter became to define the cause of her shock in the absence of an evident cardiac cause. Consideration is given to pulmonary embolism, aortic dissection, or bleeding, including into the abdominal mass. We had a discussion with the Family regarding her goals of care and desires for end of life care and CPR, especially in view of the extraordinary severity of her illness, and the very severe prognosis with apparent limited likelihood of survival. RECOMMENDATIONS: 1. Admit to ICU Hospitalist for Critical Care support. 2. Critical care evaluation for causes of her hemodynamic collapse-- including consideration of "double rule out" CT scan for PE, and aortic dissection(noting dilated aorta; and very high D-dimer). 3. Please reconsult Cardiology for ongoing consultation including as needed; and for coronary evaluation if she survives. 4. Serial ECG, serial cardiac markers. 5. Evaluation of abdominal mass including consideration of CT Abdomen; and to elicit prior known details about this apparently known mass. Level of Care: Critical Care--I spent over two hours in ED, and in ICU at patient bedside, and with Family. JUANI
[2016-05-13 15:33] LABS: Magnesium 3.3 mg/dL (1.6-2.6)
[2016-05-13] MEDS ORDERED: cefTRIAXone Inj 2,000 MG in Dextrose 5% Minibag Plus 50 ML IV STA (15:51)
[2016-05-13] MEDS ORDERED: Phenylephrine Inj 20,000 MCG in 0.9% Sodium Chloride 250 ML IV SCH (15:53)
[2016-05-13] MEDS ORDERED: MethylprednisoLONE Sodium Succinate 40 mg/mL Inj IVPUSH SCH (16:30)
--- NOTE | 2016-05-13 16:34 | PCM.HPMED ---
Subjective Date of Service May 13, 2016 Primary Provider: Admitting Physician: Primo Mckinney MD Primary Care Physician: Cynthia Frazier Attending Physician: Primo Mckinney MD Admit Status: From the Emergency Department, Full Admit, Admit to Yellow Team Chief Complaint: Cardiac arrest History of Present Illness: This is an 80-year-old female who appears to have had a cardiac arrest. Her found her slumped over at their home after making coffee for about 30 minutes. 911 was called. She was initially found to be pulseless and cool. She was in asystole. Resuscitative efforts were initiated. The patient received multiple doses of epinephrine in the field and prolonged CPR. The overall time CPR is said to be at least 45 minutes and there is mention of 2 transient episodes of ROSC. The patient arrived to the emergency department with ongoing CPR and a medical code was called. She did have a right tibia I OM place. The patient was fluid resuscitated and her LMA from the field was taken out and she was intubated. The patient was given multiple doses of epinephrine with ongoing CPR. She did have sinus rhythm without perfusing pulse for a period time but ultimately had return of pulses. The patient was in start norepinephrine. His CT was obtained negative for cranial hemorrhage. ECG indicated nonspecific ST segment changes and initial troponin was negative. Interventional cardiology was consulted but felt that there is no indication for acute cath. The patient had been diagnosed with a right lower quadrant mass by CT scan about a month prior. This mass is said to be concerning for ovarian mass. The patient had a stat echo and EEG which revealed a hyperdynamic ventricle with no focal wall hypokinesis. The mass was evaluated briefly and is to be solid. The patient's white count was mildly elevated her lactate was 20. The patient has fixed dilated pupils. She was started on the hypothermia protocol although her initial temperature upon arrival to the ED was 31C. Other history is obtainable. Review of Systems: Review of systems is not obtainable. Allergies Coded Allergies: No Known Allergies (Unverified , 05/13/16) Home Medications Not obtainable PM Unconfirmed. 1. Possible dementia 2. 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 3. Hypothyroidism Family History Not obtainable Social History Occupation: retired Hx Substance Use: No Hx Tobacco Use: No Living Arrangement: with Family Exam Vital Signs Vital Sign - Last Date Time Temp Pulse Resp B/P Pulse Ox O2 Delivery O2 Flow Rate FiO2 05/13/16 13:00 91 68/38 94 50 05/13/16 12:00 Ventilator 05/13/16 10:42 32.4 22 Exam The patient is intubated. Frontal scalp. Fixed dilated pupils. Gaze is conjugate. Anicteric sclera Normal external nose and ears Infectious unremarkable. Neck is supple. There is a right IJ in place. No obvious goiter. No adenopathy. Lungs are clear. Heart is regular without murmur. Abdomen is nondistended that she has had a large firm mobile palpable mass in the right lower quadrant which is about the size of a grapefruit. Extremities are free of edema. She has reasonable blood bounding radial pulses. She is dusky toes with multiple 8 pedal pulses. Skin is ashen but free of rash or lesions. There is no spontaneous or other movement of arms or legs with noxious stimulation. Lab and Diagnostics Labs Initial troponin is negative. Initial lactate is 20. Result Diagram: 05/13/16 0859 05/13/16 0859 X-Rays, CTs and MRIs CT head negative for intracranial hemorrhage. Chest x-ray negative for acute infiltrate. 12-lead ECG Normal sinus rhythm. Nonspecific lateral ST segment changes. No elevation. Cardiac Echo Impressions The left ventricle is normal in size, wall thickness, and systolic function without any focal wall motion abnormalities. The ejection fraction is estimated to be 65-70%. The E/A ratio is reversed with an elevated E/E', suggesting impaired early relaxation of the left ventricle with possible increased filling pressures. The right ventricle is normal in size and function. The right ventricular systolic pressure is estimated at 29 mmHg assuming a right atrial pressure of 3 mm Hg. The left atrium is moderately dilated. The right atrium is moderately dilated. There is mild to moderate tricuspid regurgitation. The ascending aorta is mild-moderately enlarge Assessment & Plan 1. Asystolic/PE a cardiac arrest. The patient is now on the cooling protocol. She appears to have evidence of possible cardiogenic shock. She is currently on norepinephrine. She has received about 5 L of crystalloid. Her map is still less than 65. At this point we will likely add vasopressin. Blood cultures are sent and pending. 2. Possible sepsis with septic shock. POA. There is no clear evidence of source on chest x-ray or urine. There is no fever. Very mild leukocytosis. The plan is continue fluid resuscitation, trend lactate, and start empiric antibiotics. 3. Probable anoxic encephalopathy. POA. The patient did have extended downtime. She has had fixed dilated pupils. The plan is to continue cooling protocol. 4. Possible chronic hypothyroidism. POA. We will send TSH and T4. There is no indication that she is on chronic Synthroid but has not taken this recently. We will resume 100 mg of IV Synthroid now. Level of care. I met with family and discussed her poor prognosis. This point we have agreed that if she arrest will not perform CPR or defibrillate. We will also not escalate above her current 2 vasopressors and in her antibiotics. Her prognosis is very poor. I expect that she will likely deteriorate clinically and passively within the next 1-2 hours. Pain Evaluation: Adequate Pain Control Resuscitation Status: DNR/DNI:Do Not Resuscitate/Intubate Time spent 60 min Primo Mckinney MD May 13, 2016 16:34
[2016-05-13] MEDS ORDERED: fentaNYL-PF 50 mCg/mL 2 mL Inj IVPUSH PRN (18:15)
[2016-05-13] MEDS ORDERED: Sodium Chloride LOK Flush 10 mL Syringe IVFLUSH PRN ×2 (18:25)
--- NOTE | 2016-05-13 19:12 | NUR ---
Code status/Family: Pt made DNR per discussion with MDs and family. understanding that pt's condition is very poor, son requesting putting off any decision making until a later time. MAP 20s-40s, Levophed and Vasopressin gtts. Vent settings 100/5/30/470 with O2 sats 88%. Per MD, continue treatment but do not escalate treatment. Unable to turn pt r/t instability of BP. Care ongoing.
--- NOTE | 2016-05-13 19:21 | CONS ---
[address] [address] CONSULTATION REPORT PATIENT: JULIA MARIE : 1935 MR#: [id number] ADMIT: 05/13/2016 JOB ID: [id number] DATE OF SERVICE: 05/13/2016 PULMONARY/CRITICAL CARE CONSULTATION: REQUESTING PHYSICIAN: Primo Mckinney MD REASON FOR CONSULTATION: Cardiac arrest. HISTORY OF PRESENT ILLNESS: The patient is an 80-year-old female who lives with her . She suffers from Alzheimer disease but she is rather functional, going for walks, going out to get lunches in restaurants with her . She states that every day she gets up, has coffee which he has made, relaxes a little bit, goes out for a hamburger, comes back and takes a drive, comes home, has dinner, and watches television before going to bed. This morning he made coffee and she did not appear after he got up 30 minutes earlier. They sleep in separate bedrooms because of the Alzheimer's disease. He went into her bedroom and found her slumped across her bed with her legs hanging over the side of the bed. He states she was cold. Does not recall whether she was breathing. When paramedics arrived, they described her as being in asystole. Had advanced life-support interventions for about 45 minutes. Subsequently was obtained. She was intubated. Had a CT scan of her head which was negative for hemorrhage. Had an EKG which showed some very mild ST-segment depression. Cardiology was called. Spoke with the senior oracle dba, who said that on repeat EKG the ST depression had resolved. He did toy with cardiac catheterization but an echocardiogram showed "vigorous" biventricular contraction. No evidence of valvular disease or segmental discoordination. He felt that emergent cardiac catheterization was not warranted. REVIEW OF SYSTEMS: Unable to obtain. PAST MEDICAL HISTORY: The patient suffers from Alzheimer's. does not recall any other medical problems. ALLERGIES: None known. SMOKING HISTORY: None. HOBBIES: The indicates the patient does not engage in any hobbies which expose her to dust, fumes, or solvents. PHYSICAL EXAMINATION: Blood pressure initially upon arrival was 100/44. Has been slowly decreasing. Temperature upon arrival was 32.4 in the absence of specific cooling interventions. Pulse of 74, blood pressure 100/44. O2 sat on 50%, PEEP of 5 is 95% to 98%. General appearance: Well-developed, well-nourished female lying in bed, intubated, on a ventilator. Various lines in place. Eyes: Conjunctivae are pink. Pupils fixed and dilated. Nose and throat could not be examined. Neck has prominent arterial pulsation in the right side of the neck. This is accompanied by the head of the clavicle on the right, which somewhat protrudes and angles off posteriorly at a more acute angle than usual. There were no bruits. Chest: Fairly good breath sounds bilaterally. Lung de la garza relatively clear. With a tidal volume of 450, and PEEP of 5, peak inspiratory pressure in the low 20s. Heart: Rapid rate. Gallop rhythm. Abdomen: Soft. Nondistended. There is a palm-sized, firm, almost hard mass in the right lower quadrant. says they are aware of that mass and she had a CT scan at [facility] about a month ago. Extremities: No clubbing. Feet and hands are cold and the feet are a slight grayish color. Skin is slightly mottled. No other dermatologic lesions. LABORATORY DATA: Shows a white count of 11,600 with 42 polymorphonuclears, 44 lymphocytes, 4 monocytes. Hemoglobin 12.5. MCV 104. Platelet count 123,000. Sodium 140, potassium 4.3, chloride 99, CO2 is 7, BUN 25, creatinine 1.2, glucose 338. Calcium 8.6 with an albumin of 3.2. Magnesium 3.1. AST 156, ALT 159, alkaline phosphatase 77. Troponin-T is negative at 0.010. INR is 1.21 on admission. PTT is 90.2. D-dimer 136.2. Chest x-ray shows the endotracheal tube in good position. There is some increased fluffiness in the left upper as well as lingular regions, as will as the right base. Mediastinum and cardiac silhouette are normal. CT of the brain shows no acute intracranial process. Upon evaluation in the intensive care unit her blood pressure was rather labile with a event sales representative blood pressure initially being about 70/30 and more recently 50s over 30. Pulse is about 90. Ultrasound of the radial artery showed very small radial arteries with Doppler flow being near nonexistent. Attempts at placement of a radial arterial line were unsuccessful. ASSESSMENT AND PLAN: The patient was continued on norepinephrine, which she was receiving upon arrival in the ICU. Fluid administration was continued, with the patient having received 3 or 4 L of normal saline prior to transfer to the ICU and subsequently has received another 3 L. Stephania has it that she receives thyroid, but has not filled it since a few months ago. She was therefore given IV thyroid awaiting testing results. I spoke with her . He supplied history. We supplied the findings and her poor prognosis given that she had apparently sustained significant brain damage. In addition, we are developing refractory shock. In spite of continued fluids and other maneuvers, the patient's blood pressure continued to fall. At times as low as 43/19 but then slowly rebounded. Throughout this the patient was on the hypothermia protocol which had been instituted in the ED. Family members came in, notably her son and [id number]. Explained the extremely poor prognosis. Did not expect her to make it through the next few hours. Both the son and [id number] were somewhat taken aback and, although they stated they were going to sit in the waiting room, they could not be found when decisions needed to be made. We called the patient's . After outlining the findings, as well as their import and her poor prognosis, he decided that no further interventions be made. The plan is to make her comfort. For the moment we will continue our care with fluids, pressors, and mechanical ventilation. May need to discuss this with him further in the future. Unable to find the son and [id number] to convey the current situation and the 's wishes. Time spent so far in critical care 2 hours 30 minutes. Thank so much, Dr. Mckinney, for asking us to see this most unfortunate individual and allow us to participate in her care.
[2016-05-13] MEDS: Lactated Ringer's 1,000 ML IV SCH ×2 (20:10→23:38)
--- NOTE | 2016-05-13 22:43 | NUR ---
assessment/spoke with md and family at 1999 unable to palpate pedal or radial pulses, heart tones distant, tele- sr, hr 60's, bp 40's-50's/20's-30's, pt cool, pale, arctic sun cooling machine on, temp 32.7-33 degrees celsius, vasopressin at 0.03units per minute and norepi gtt at 0.5mcg/kg/min, only couple ml's of tali urine in upper f/c tubing, no bm, rare bt noted, abd round/distended, ls- course t/o, 100% fio2 per vent, sats initially 88-90%, now with poor perfusion unable to get good reading, md called and updated on pt's status/assessment, confirmed info and order received as heard in report at 1949, see orders, no titrating of meds and to continue current treatment, labs cancelled, family -pt's - called and updated on pt's condition and vital signs at 1999, pt's states pt's son is at his house with him, agreed to call back if pt's hr drops, at 2229 pt's called again and updated on pt's bp and hr dropping to 40bpm, pt's states that they were hoping to have family gathering tomorrow, pt's gently told that pt may not still be alive in the morning and asked if he would like to come in to be with pt tonight, pt's states that he and his son were going to stay home tonight and agreed that he would like a phone call if pt passes away during the night, see ccu flow sheet,
--- NOTE | 2016-05-13 23:40 | NUR ---
Pt's and son arrived at 2335, stated that they were aware of pt's condition having spoken with md during day shift, pt's son and stating they want to be here but opting to wait in waiting room, pt's hr 30's with bloody drainage from nasal passages and mouth, Addendum: 05/13/16 at [id number] by GIUSEPPE ROGERS RN pt's second son here with family to visit pt in the room
--- NOTE | 2016-05-14 02:46 | NUR ---
pt pt at 0052, pt in pea at 0030 to asystole at 0052, aware, pt's and son aware of pt's passing away, pt's given info on homes and school supervisor's number to call in am with home name, nursing school supervisor aware pt's will call in am and school supervisor aware watershed program manager wanting home name also, no belongings here to send home with , watershed program manager notified pt within 24hrs of admit, watershed program manager states pt not to have an autopsy, lines and tubes removed, post expiration paperwork done and [place] [facility] [place],
--- NOTE | 2016-05-14 07:57 | PCM.DC.MEX ---
Discharge Summary Date of Service May 14, 2016 Dates of Hospitalization Date of Hospital Admission May 13, 2016 at 10:53 Date of Expiration: May 14, 2016 Time of Expiration: 02:15 Providers: Admitting Physician: Primo Mckinney MD Primary Care Physician: Cynthia Frazier Attending Physician: Primo Mckinney MD Diagnosis at Time of 1. Septic shock 2. Probable abdominal catastrophe 3. PEA arrest, status post prolonged resuscitation. 4. Severe lactic acidosis. Consultations Pulmonary critical care, Dr Travis Procedures XRay, CTs & MRIs CT head negative for intracranial hemorrhage. Chest x-ray negative for acute infiltrate. ECG 12 Lead Normal sinus rhythm. Nonspecific lateral ST segment changes. No elevation. Cardiac Echo Impression The left ventricle is normal in size, wall thickness, and systolic function without any focal wall motion abnormalities. The ejection fraction is estimated to be 65-70%. The E/A ratio is reversed with an elevated E/E', suggesting impaired early relaxation of the left ventricle with possible increased filling pressures. The right ventricle is normal in size and function. The right ventricular systolic pressure is estimated at 29 mmHg assuming a right atrial pressure of 3 mm Hg. The left atrium is moderately dilated. The right atrium is moderately dilated. There is mild to moderate tricuspid regurgitation. The ascending aorta is mild-moderately enlarge Invasive Procedures Intubation Right IJ central line. Brief History This is an 80-year-old female who appears to have had a cardiac arrest. Her found her slumped over at their home after making coffee for about 30 minutes. 911 was called. She was initially found to be pulseless and cool. She was in asystole. Resuscitative efforts were initiated. The patient received multiple doses of epinephrine in the field and prolonged CPR. The overall time CPR is said to be at least 45 minutes and there is mention of 2 transient episodes of ROSC. The patient arrived to the emergency department with ongoing CPR and a medical code was called. She did have a right tibia I OM place. The patient was fluid resuscitated and her LMA from the field was taken out and she was intubated. The patient was given multiple doses of epinephrine with ongoing CPR. She did have sinus rhythm without perfusing pulse for a period time but ultimately had return of pulses. The patient was in start norepinephrine. His CT was obtained negative for cranial hemorrhage. ECG indicated nonspecific ST segment changes and initial troponin was negative. Interventional cardiology was consulted but felt that there is no indication for acute cath. The patient had been diagnosed with a right lower quadrant mass by CT scan about a month prior. This mass is said to be concerning for ovarian mass. The patient had a stat echo and EEG which revealed a hyperdynamic ventricle with no focal wall hypokinesis. The mass was evaluated briefly and is to be solid. The patient's white count was mildly elevated her lactate was 20. The patient has fixed dilated pupils. She was started on the hypothermia protocol although her initial temperature upon arrival to the ED was 31C. Other history is obtainable. Hospital Course 1. Asystolic/PE a cardiac arrest. The patient is now on the cooling protocol. She appears to have evidence of possible cardiogenic shock. She is currently on norepinephrine. She has received about 5 L of crystalloid. Her map is still less than 65. At this point we will likely add vasopressin. Blood cultures are sent and pending. 2. Possible sepsis with septic shock. POA. There is no clear evidence of source on chest x-ray or urine. There is no fever. Very mild leukocytosis. The plan is continue fluid resuscitation, trend lactate, and start empiric antibiotics. 3. Probable anoxic encephalopathy. POA. The patient did have extended downtime. She has had fixed dilated pupils. The plan is to continue cooling protocol. 4. Possible chronic hypothyroidism. POA. We will send TSH and T4. There is no indication that she is on chronic Synthroid but has not taken this recently. We will resume 100 mg of IV Synthroid now. Level of care. I met with family and discussed her poor prognosis. This point we have agreed that if she arrest will not perform CPR or defibrillate. We will also not escalate above her current 2 vasopressors and in her antibiotics. Her prognosis is very poor. I expect that she will likely deteriorate clinically and passively within the next 1-2 hours. Hospital course: This patient was admitted after having a field resuscitation. She had approximately 55 minutes of total resuscitation time. She had 2 ROSC before arrival to the hospital. She then went back into a PEA arrest and was doing CPR when she arrived in the ED. There she had another 20 minute resuscitation effort with primarily PEA. She did have ROSC after multiple doses of epinephrine and prolonged CPR. She had fixed and dilated pupils. She was brought to the [place] norepinephrine drip but quickly deteriorated and required vasopressin as well as very aggressive fluid resuscitation. The patient was intubated prior to admission to the ICU and had a right IJ placed. She was noted to have a right lower quadrant abdominal mass. A stat echo indicated a hyperdynamic ventricular function. Ultimately her clinical course continued to deteriorate. It was discussed with the family and felt that likely she had a little no chance of neurologic or general recovery. Presently the decision was made to not escalate care that she will remain intubated and on 2 pressors. She had ongoing current clinical deterioration and ultimately at 02:15 on May 14 with family in attendance. Exam Test 05/13/16 08:59 05/13/16 09:00 05/13/16 09:26 05/13/16 09:27 White Blood Count 11.6th/mm3 (3.8-10.1) Red Blood Count 3.98mil/mm3 (3.90-5.20) Hemoglobin 12.5g/dL (12.0-15.6) Hematocrit 41.7% (35.0-46.0) Mean Corpuscular Volume 104.8fL (81-100) Mean Corpuscular Hemoglobin 31.4pg (27.0-35.0) Mean Corpuscular Hemoglobin Concent 30.0% (32.0-37.0) Red Cell Distribution Width 12.6% (12.3-15.4) Platelet Count 123bil/L (150-400) Neutrophils (%) (Auto) 42.6% (40-74) Lymphocytes (%) (Auto) 44.6% (14-46) Monocytes (%) (Auto) 4.3% (4-12) Eosinophils (%) (Auto) 2.0% (0-5) Basophils (%) (Auto) 0.3% (0-3) Sodium Level 140mEq/L (134-144) Potassium Level 4.3mEq/L (3.5-5.2) Chloride Level 99mEq/L (97-108) Carbon Dioxide Level 7mmol/L (18-29) Blood Urea Nitrogen 25mg/dL (8-27) Creatinine 1.21mg/dL (0.57-1.00) Estimat Glomerular Filtration Rate 61mL/min (>59) Glucose Level 338mg/dL (60-99) Calcium Level 8.6mg/dL (8.5-10.1) Total Bilirubin 0.3mg/dL (0.0-1.2) Aspartate Amino Transf (AST/SGOT) 156U/L (0-50) Alanine Aminotransferase (ALT/SGPT) 159U/L (0-32) Alkaline Phosphatase 77U/L (25-165) Total Protein 5.6g/dL (6.4-8.4) Hold Ortiz Top Tube Received (Received) Prothrombin Time 13.0sec (8.1-12.5) Prothromb Time International Ratio 1.21ratio Total Creatine Kinase 350U/L (21-215) Creatine Kinase MB 6.0ng/mL (0.0-5.3) Creatine Kinase MB % % (0.0-5.0) Activated Partial Thromboplast Time 90.2sec (22.8-33.0) D-Dimer 136.2mg/L (<0.50) Test 05/13/16 11:13 05/13/16 14:25 05/13/16 14:48 05/13/16 16:30 Troponin T 0.010ug/L (0.0-0.011) Prealbumin 15mg/dL (20-40) Thyroid Stimulating Hormone (TSH) 5.860uIU/mL (0.450-4.500) Free Thyroxine 0.91ng/dL (0.82-1.77) Magnesium Level 3.3mg/dL (1.6-2.6) Albumin 2.6g/dL (3.4-5.0) Lactic Acid Level 9.3mmol/L (0.4-2.0) Time spent 40 min Primo Mckinney MD May 14, 2016 07:57
[2016-05-14] MEDS ORDERED: Azithromycin Inj 500 MG in Dextrose 5% w/Vial Mate 250 ML IV SCH (08:30)
== END 2016-05-14 00:52 | disposition expired | DRG 296 ==
LOC: SED 08:42 → CCU 10:53
PROVIDERS: ADMIT Hospitalist; ATTEND Hospitalist
PROC: 0BH17EZ Insertion of Endotracheal Airway into Trachea, Via Natural or Artificial Opening (ICD-10-PCS; principal; 2016-05-13)
PROC: 5A1935Z Respiratory Ventilation, Less than 24 Consecutive Hours (ICD-10-PCS; 2016-05-13)
PROC: 4A033R1 Measurement of Arterial Saturation, Peripheral, Percutaneous Approach (ICD-10-PCS; 2016-05-13)
DX: I46.9 Cardiac arrest, cause unspecified (principal); A41.9 Sepsis, unspecified organism; R65.21 Severe sepsis with septic shock; G93.1 Anoxic brain damage, not elsewhere classified; E03.9 Hypothyroidism, unspecified; R40.2430 Glasgow coma scale score 3-8, unspecified time; G30.9 Alzheimer's disease, unspecified; F02.80 Dementia in other diseases classified elsewhere, unspecified severity, without behavioral disturbance, psychotic disturbance, mood disturbance, and anxiety